=== PATIENT | male | born 1965 | race Caucasian/White ===

== ENCOUNTER 2022-04-24 10:50 | Emergency (ER) | payer OTHER, SELFPAY ==
--- NOTE | ~2022-04-24 | CT_ITS ---
EXAMINATION: CTA brain carotid DATE: 04/24/2022 13:59 INDICATION: Near syncope. Headache. TECHNIQUE: Computed tomographic angiography (CTA) of the head was performed without and with 100 mL O mnipaque-350 intravenous contrast. CTA of the neck was performed with intravenous contrast. Automated exposure control and iterative reconstruction technique were employed. The dose-length product was 1 721.00 mGy-cm. Maximum intensity projection and volume rendered 3D-reconstructions were created by e technologist on a separate workstation. COMPARISON: None. FINDINGS: HEAD CTA: There is an infarct in right cerebellum. There are scattered areas of low attenuation in th e cerebral white matter. There is no intracranial hemorrhage or abnormal mass lesion. There is mucosa l thickening in the paranasal sinuses. The mastoid air cells are normal. The orbits are normal. Left vertebral artery is dominant. There is no significant stenosis of basilar artery or the posterior cer ebral arteries. The posterior communicating arteries are normal. There is no significant stenosis of the intracranial internal carotid arteries or anterior or middle cerebral arteries. Anterior communic ating artery is normal. There is no aneurysm. NECK CTA: There is mild emphysema. There is mild scarring at the lung apices. There are no pathologic ally enlarged lymph nodes. There is severe stenosis of origin of left vertebral artery. There is tota l occlusion of proximal right vertebral artery with reconstitution. There is plaque in the proximal i nternal carotid arteries. There is 38% stenosis of the proximal right internal carotid artery relativ e to normal distal artery lumen diameter (NASCET criteria). There is 17% stenosis of the proximal lef t internal carotid artery relative to normal distal artery lumen diameter. There is mild cervical spo ndylosis. IMPRESSION: 1. 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 2. Mild nonspecific cerebral white matter disease, which likely represents chronic small vessel ische joss disease. 3. No aneurysm or significant intracranial arterial stenosis. 4. 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 5. Severe stenosis of origin of left vertebral artery. 6. 38% stenosis of the proximal right internal carotid artery relative to normal distal artery lumen diameter (NASCET criteria). 7. 17% stenosis of the proximal left internal carotid artery relative to normal distal artery lumen d iameter. Reviewed, dictated and finalized at location A. IMPRESSION: 1. 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 2. 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 3. No aneurysm or significant intracranial arterial stenosis. 4. 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 5. Severe stenosis of origin of left vertebral artery. 6. 38% stenosis of the proximal right internal carotid artery relative to nehemias l distal artery lumen diameter (NASCET criteria). 7. 17% stenosis of the proximal left internal carotid artery relative to normal distal artery lumen diameter.
--- NOTE | ~2022-04-24 | XR_ITS ---
EXAMINATION: XR chest 1V portable INDICATION: Presyncope TECHNIQUE: Portable AP chest at 1325 hours COMPARISON: None available FINDINGS: The lungs are free of acute opacities. No pleural effusion or pneumothorax. The cardiomedia stinal silhouette is normal. IMPRESSION: 1. No acute cardiopulmonary abnormality. Reviewed, dictated and finalized at location A.
[2022-04-24 10:52] VITALS: BP 148/97; PULSE 94; RESP 18; TEMP 36.2; O2SAT 100
--- NOTE | 2022-04-24 10:55 | ECG_ITS ---
Measurements Intervals [place] Rate: 87 P: 22 SD: 166 QRS: -77 QRSD: 86 T: 57 QT: 360 QTc: 434 Interpretive Statements SINUS RHYTHM LEFT AXIS DEVIATION INCOMPLETE RIGHT BUNDLE BRANCH BLOCK POOR R WAVE PROGRESSION, ANTERIOR LEADS BORDERLINE ECG NO PREVIOUS ECG AVAILABLE FOR COMPARISON Electronically Signed On 04-24-2022 11:16:55 CDT by Chidi Zhu D.O.
[2022-04-24 11:10] LABS: Basophils Absolute Auto 0.1 K/mm3 (0.0-0.1); Basophils Percent Auto 0.6 % (0.2-1.2); Eosinophils Absolute Auto 0.2 K/mm3 (0-0.3); Eosinophils Percent Auto 2.4 % (0-4.4); Hematocrit 44.6 % (42.0-52.0); Hemoglobin 14.5 g/dL (14.0-18.0); Immature Granulocyte Absolute 0.03 K/mm3 (0.00-0.031); Immature Granulocyte Percent A 0.3 % (0-0.5); Lymphocytes Absolute Auto 1.82 K/mm3 (0.9-3.2); Lymphocytes Percent Auto 18.4 % (18.3-44.2); Mean Corpuscular HGB Conc 32.5 g/dl (32-36); Mean Corpuscular Hemoglobin 30.5 pg (26-34); Mean Corpuscular Volume 93.7 fl (80-100); Mean Platelet Volume 9.1 fl (7.4-10.4); Monocytes Absolute Auto 0.8 K/mm3 (0.1-0.6); Monocytes Percent Auto 8.2 % (2.6-8.5); Neutrophils Absolute Auto 6.9 K/mm3 (1.3-6.7); Neutrophils Percent Auto 70.1 % (45.5-73.1); Platelet Count Result 249 k/mm3 (150-375); Red Blood Count 4.76 M/mm3 (4.6-6.20); White Blood Count 9.9 K/mm3 (4.5-10.0)
[2022-04-24 11:25] LABS: Alanine Aminotransferase 22 U/L (6-50); Albumin Level 4.4 g/dL (3.5-5.1); Alkaline Phosphatase 66 U/L (38-126); Anion Gap 12 mmol/L (8-16); Aspartate Amino Transferase 25 U/L (17-59); Bilirubin,Total 0.3 mg/dL (0.2-1.3); Blood Urea Nitrogen 27 mg/dL (9-20); Calcium 8.8 mg/dL (8.4-10.2); Carbon Dioxide 23 mmol/L (22-30); Chloride 103 mmol/L (98-107); Estimated CRCL calculation 62 ml/min; Estimated Glomerular Filt Rate > 60; Glucose 107 mg/dL (65-110); Potassium 3.8 mmol/L (3.4-5.0); Sodium 138 mmol/L (137-145)
--- NOTE | 2022-04-24 13:20 | ED.GENADULT ---
HPI - General Adult General Chief complaint: Syncope Stated complaint: near syncope Time Seen by Provider: 04/24/22 13:08 History of Present Illness HPI narrative: This is a 57-year-old male presenting to ED with sudden onset of disequilibrium. Patient was driving to work at 2:30 a.m. when he began to feel dizziness/disequilibrium. He felt that he could see the road moving when he knew it was not. 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 After he rested his symptoms completely resolved. During the symptoms he denies chest pain, palpitations, difficulty breathing. He did become diaphoretic. Patient denies numbness tingling or weakness. After he rested he was able to complete his drive to work. He was able to finish his day's work work although throughout the day he had intermittent periods dizziness. At this time the patient is denying double vision, dysarthria, dysphagia. He is able to tragal trigger the movements by standing up. Related Data Allergies Allergy/AdvReac Type Severity Reaction Status Date / Time No Known Allergies Allergy Verified 04/24/22 12:49 Review of Systems Review of Systems: CONSTITUTIONAL: Denies night sweats. EYES: No eye pain ENT: Denies rhinorrhea CARDIOVASCULAR: Denies palpitations RESPIRATORY: Denies hemoptysis GASTROINTESTINAL: Denies hematemesis GENITOURINARY: Denies hematuria. SKIN: Denies rash MUSCULOSKELETAL: Denies myalgia. NEUROLOGIC: Denies weakness. PSYCHIATRIC: Denies delusions [facility] Past Medical History Medical History HTN (hypertension) Surgical History Surgical History History of vasectomy Social History Social History Social History: Patient denies alcohol use, smokes pack cigarettes per day, denies drug use Exam Narrative: APPEARANCE: No apparent distress. Head atraumatic. EYES: PERRLA/EOMI, NOSE: Normal no drainage NECK: Supple, Trachea midline RESPIRATORY: CTAB, No increased work of breathing. CARDIOVASCULAR: S1S2 appreciated ABDOMINAL: Soft, nontender, nondistended, MUSCULOSKELETAl: No obvious deformities NEURO: Cranial nerves 2-12 grossly intact. Sensation light touch, motor function cerebellar function intact for 4 extremities. Gait exam was normal. when patient stood up he did have an episode of vertigo. Patient has no nystagmus at rest, test of skew is negative, head impulse was indeterminate SKIN:: Warm, dry. Normal color PSYCHIATRIC: Normal affect Course Vital Signs Vital signs: Vital Signs Temperature 97.2 F L 04/24/22 10:52 Pulse Rate 94 04/24/22 10:52 Respiratory Rate 18 04/24/22 10:52 Blood Pressure 148/97 H 04/24/22 10:52 Pulse Oximetry 100 04/24/22 10:52 Oxygen Delivery Room Air 04/24/22 10:52 Temperature 97.2 F L 04/24/22 10:52 Pulse Rate 78 04/24/22 15:04 Respiratory Rate 20 04/24/22 15:04 Blood Pressure 160/109 H 04/24/22 15:04 Pulse Oximetry 100 04/24/22 15:04 Oxygen Delivery Room Air 04/24/22 10:52 Procedures Pulse Oximetry Interpretation Digit-Finger: Initial pulse oximetry readin Actions Taken: none Medical Decision Making MDM Narrative Medical decision making narrative: this is a 57-year-old male presenting to ED with an episode of dizziness/ vertigo. First episode occurred at 2:30 a.m. in the morning and has since resolved. The differential includes posterior circulation stroke, benign peripheral vertigo, cardiac causes of dizziness among others. A CTA of the head and neck have been ordered. Lab work including a troponin, EKG and chest x-ray have also been obtained. Patient will be given meclizine and a L of fluids. Lab work was within normal limits. EKG interpretation: Rhythm [sinus], Rate 87, [place] -left, [place] -[normal], QRS [narrow], QTC [normal], T waves -[negative for concerning inversions], ST S
[2022-04-24] MEDS: SODIUM CHLORIDE 0.9% IV 2,000 ML 999 ML IV CONT (13:48)
[2022-04-24 13:50] LABS: Troponin I < 0.012 ng/mL (0.000-0.034)
[2022-04-24] MEDS: MECLIZINE HCL 25 MG TABLET PO (13:51)
[2022-04-24 14:20] VITALS: PULSE 76; RESP 12; O2SAT 100
[2022-04-24 15:04] VITALS: BP 160/109; PULSE 78; RESP 20; O2SAT 100
[2022-04-24] MEDS: ASPIRIN 81 MG CHEWABLE TABLET 324 MG PO (15:09)
--- NOTE | 2022-04-24 16:48 | PC.NURSE ---
[facility] accepted transfer to [place] [facility] 1730 trip#[id number]
[2022-04-24 16:51] LABS: Troponin I < 0.012 ng/mL (0.000-0.034)
[2022-04-24 17:47] VITALS: BP 142/87; PULSE 71; RESP 14; O2SAT 99
--- NOTE | 2022-04-24 17:57 | PC.NURSE ---
new eta for [facility] 1830
[2022-04-24 20:29] VITALS: BP 147/103; PULSE 68; RESP 15; O2SAT 100
== END 2022-04-24 20:31 | disposition short-term general hospital (02) ==
PROVIDERS: Emergency Medicine; Emergency Provider Emergency Medicine
DX: I63.9 Cerebral infarction, unspecified (principal); I65.01 Occlusion and stenosis of right vertebral artery; I10 Essential (primary) hypertension; R42 Dizziness and giddiness; F17.200 Nicotine dependence, unspecified, uncomplicated
CPT/HCPCS: 36415; 70496; 70498; 71045; 80053; 84484; 85025; 93005; 96360; 96361; 99285; A9270; J7030; Q9967